=== PATIENT | female | born 1955 | race Caucasian/White ===

== ENCOUNTER 2016-10-23 10:55 | Observation (INO) | payer MEDICAID ==
[~2016-10-23] VITALS: Ht 172.7 cm; Wt 105.2 kg
[~2016-10-23 10:55] MED LIST: ESTR1TAB17 PO; LEVO125T8 PO
[2016-10-23] MEDS ORDERED: ASPIRIN 81 MG TABLET CHEW PO ONE (11:30)
[2016-10-23 12:16] LABS: BLOOD UREA NITROGEN 15 mg/dL (7-18)
[2016-10-23] MEDS ORDERED: ASPIRIN 81 MG TABLET CHEW ONE (12:16)
[2016-10-23 12:25] LABS: IS PT STATUS REG ER OR PRE ER? YES
[2016-10-23] MEDS ORDERED: MORPHINE SULFATE 4 MG/ML, 1ML IVPush PRN ×2 (12:30→17:00)
[2016-10-23] MEDS ORDERED: ONDANSETRON 2MG/ML, 2ML IVPush ONE (12:30)
[2016-10-23] MEDS ORDERED: NITROGLYCERIN SINGLE TAB 0.4 MG SL PRN (12:30)
[2016-10-23] MEDS ORDERED: SODIUM CHLORIDE FLUSH 10ML SYR IVF ONE (12:30)
[2016-10-23] MEDS ORDERED: SODIUM CHLORIDE FLUSH 10ML SYR IVF PRN (13:30)
[2016-10-23] MEDS ORDERED: HYDROcodone/APAP 5/325 TABLET PO PRN (17:00)
[2016-10-23] MEDS ORDERED: DOCUSATE 100 MG CAPSULE PO PRN (17:00)
[2016-10-23] MEDS ORDERED: ONDANSETRON 2MG/ML, 2ML IVPush PRN (17:00)
[2016-10-23] MEDS ORDERED: hydrALAzine 20 MG/ML, 1ML IVPush PRN (17:00)
[2016-10-23] MEDS ORDERED: ACETAMINOPHEN 325 MG TABLET ONE (17:40)
[2016-10-23] MEDS: ACETAMINOPHEN 325 MG TABLET PO PRN (17:42)
[2016-10-23 18:48] LABS: IS PT STATUS REG ER OR PRE ER? YES
[2016-10-23 20:00] VITALS: BP 114/71
[2016-10-24 01:24] LABS: IS PT STATUS REG ER OR PRE ER? NO
[2016-10-24 02:00] VITALS: BP_SYST 115; BP_SYST 125; BP_DIAS 74; BP_DIAS 76
[2016-10-24 05:48] LABS: BLOOD UREA NITROGEN 17 mg/dL (7-18)
[2016-10-24] MEDS: ASPIRIN 81 MG TABLET EC PO SCH (06:02)
[2016-10-24 07:20] VITALS: BP 113/73
[2016-10-24] MEDS ORDERED: REGADENOSON 0.4 MG/5 ML SYRINGE ONE (08:21)
[2016-10-24] MEDS: LEVOTHYROXINE 125 MCG TABLET PO SCH (09:02)
[2016-10-24 12:57] VITALS: BP 126/78
[2016-10-24] MEDS ORDERED: SIMV10TA3 PO (15:35)
[2016-10-24] MEDS ORDERED: ASPI-621 PO (15:35)
[2016-10-24] MEDS ORDERED: DIAZ5TAB PO (17:24)
[2016-10-24] MEDS: ACETAMINOPHEN 325 MG TABLET PO PRN (17:28)
[2016-10-24 20:00] VITALS: BP 106/66
[2016-10-24 21:36] VITALS: BP 118/73
[2016-10-25 02:00] VITALS: BP 105/67
[2016-10-25] MEDS: ASPIRIN 81 MG TABLET EC PO SCH (05:47)
[2016-10-25 06:50] VITALS: BP 106/67
[2016-10-25] MEDS: LEVOTHYROXINE 125 MCG TABLET PO SCH (08:13)
== END 2016-10-25 11:45 | disposition home or self-care (01) ==
LOC: ED 13:07 → INTOOBSV 13:08 → EDIP 13:08 → ED 13:13 → 4EST 19:23
PROVIDERS: ADMIT Internal Medicine; ATTEND Internal Medicine
DX: R07.89 Other chest pain (principal); E03.9 Hypothyroidism, unspecified; N26.1 Atrophy of kidney (terminal); I20.0 Unstable angina; G47.00 Insomnia, unspecified; F17.200 Nicotine dependence, unspecified, uncomplicated; Z90.710 Acquired absence of both cervix and uterus; Z83.3 Family history of diabetes mellitus
CPT/HCPCS: 36415; 71020; 78452; 80048; 80061; 82040; 83036; 83880; 84443; 84484; 85025; 93005; 93017; 93306; 99285; A9502; C9898; G0378; J2785

== ENCOUNTER 2017-01-24 15:19 | Emergency (ER) | payer MEDICAID ==
[~2017-01-24] VITALS: Ht 172.7 cm; Wt 91.9 kg
[~2017-01-24 15:19] MED LIST changes: +ASPI-621 PO; +DIAZ5TAB PO; +SIMV10TA3 PO
[2017-01-24 15:56] LABS: HEMATOCRIT 40.3 % (34.6-47.8); HEMOGLOBIN 13.5 g/dL (11.7-16.4); WHITE BLOOD COUNT 9.7 x10^3/uL (3.4-10)
[2017-01-24 16:05] LABS: BLOOD UREA NITROGEN 17 mg/dL (7-18)
[2017-01-24 16:33] VITALS: BP 145/85
== END 2017-01-24 16:36 | disposition home or self-care (01) ==
LOC: ED 16:17
DX: R00.2 Palpitations (principal); I10 Essential (primary) hypertension; R11.0 Nausea
CPT/HCPCS: 36415; 80048; 81003; 82040; 84436; 84443; 85025; 93005; 99285

== ENCOUNTER 2017-01-25 17:50 | Emergency (ER) | payer MEDICAID ==
[~2017-01-25] VITALS: Ht 175.3 cm; Wt 91.6 kg
[2017-01-25 17:52] VITALS: BP 125/82
== END 2017-01-25 18:24 | disposition home or self-care (01) ==
LOC: ED 18:00
DX: K08.89 Other specified disorders of teeth and supporting structures (principal); I10 Essential (primary) hypertension
CPT/HCPCS: 99283

== ENCOUNTER 2017-04-11 19:47 | Emergency (ER) | payer MEDICAID ==
[~2017-04-11] VITALS: Ht 172.7 cm; Wt 91.5 kg
[2017-04-11 19:50] VITALS: BP 128/83
[2017-04-11] MEDS ORDERED: KETOROLAC 30 MG/1 ML ONE (20:42)
[2017-04-11] MEDS ORDERED: KETOROLAC 30 MG/1 ML IM ONE (21:00)
== END 2017-04-11 21:38 | disposition home or self-care (01) ==
LOC: ED 20:07
DX: S20.212A Contusion of left front wall of thorax, initial encounter (principal); I10 Essential (primary) hypertension; Z90.49 Acquired absence of other specified parts of digestive tract; Z90.710 Acquired absence of both cervix and uterus; X58.XXXA Exposure to other specified factors, initial encounter; Y93.89 Activity, other specified; Y92.89 Other specified places as the place of occurrence of the external cause; Y99.8 Other external cause status
CPT/HCPCS: 71101; 96372; 99284; J1885

== ENCOUNTER 2017-07-05 18:12 | Emergency (ER) | payer MEDICAID ==
[~2017-07-05] VITALS: Ht 175.3 cm; Wt 92.9 kg
[2017-07-05 18:16] VITALS: BP 156/83
[2017-07-05] MEDS ORDERED: KETOROLAC 30 MG/1 ML ONE (19:11)
[2017-07-05] MEDS ORDERED: KETOROLAC 30 MG/1 ML IM ONE (19:30)
== END 2017-07-05 19:46 | disposition home or self-care (01) ==
LOC: ED 19:19
DX: B34.9 Viral infection, unspecified (principal); I10 Essential (primary) hypertension; E03.9 Hypothyroidism, unspecified; Z87.891 Personal history of nicotine dependence; Z90.49 Acquired absence of other specified parts of digestive tract
CPT/HCPCS: 71046; 96372; 99284; J1885

== ENCOUNTER 2018-08-27 12:33 | Emergency (ER) | payer MEDICAID ==
[~2018-08-27] VITALS: Ht 172.7 cm; Wt 91.9 kg
[~2018-08-27 12:33] MED LIST changes: -ASPI-621 PO; +ASPI81TA45 PO
[2018-08-27 12:51] VITALS: BP 112/72
[2018-08-27] MEDS ORDERED: DIPH,PERTUSS(ACELL),TET VAC/PF 0.5 ML IM-VACC ONE ×2 (13:00→13:02)
[2018-08-27] MEDS ORDERED: LIDOCAINE-MPF 1%, 5ML ONE (13:03)
[2018-08-27] MEDS ORDERED: LIDOCAINE-MPF 1%, 5ML INFIL ONE (13:30)
[2018-08-27] MEDS ORDERED: BACITRACIN ZINC OINT 500U/GM, 0.9 GM ONE (13:31)
== END 2018-08-27 13:48 | disposition home or self-care (01) ==
LOC: ED 13:42
DX: S61.212A Laceration without foreign body of right middle finger without damage to nail, initial encounter (principal); X58.XXXA Exposure to other specified factors, initial encounter; Y93.89 Activity, other specified; Y92.009 Unspecified place in unspecified non-institutional (private) residence as the place of occurrence of the external cause; Y99.8 Other external cause status
CPT/HCPCS: 12001; 90471; 90715

== ENCOUNTER 2019-04-02 19:16 | Observation (INO) | payer MEDICAID ==
[~2019-04-02] VITALS: Ht 172.7 cm; Wt 94.2 kg
[2019-04-02] MEDS ORDERED: ASPIRIN 81 MG TABLET CHEW ONE (19:52)
[2019-04-02] MEDS ORDERED: MAALOX/HYOSCYAMINE/LIDOCAINE 45 ML BTL ONE (19:53)
[2019-04-02] MEDS ORDERED: ASPIRIN 81 MG TABLET CHEW PO ONE (20:00)
[2019-04-02] MEDS ORDERED: MAALOX/HYOSCYAMINE/LIDOCAINE 45 ML BTL PO ONE (20:00)
[2019-04-02 20:02] LABS: BASOPHILS # (AUTO) 0.09 x10^3/uL (0-0.1); BASOPHILS % (AUTO) 1 % (0-1); EOSINOPHILS # (AUTO) 0.12 x10^3/uL (0-0.4); EOSINOPHILS % (AUTO) 1 % (1-7); LYMPHOCYTES # (AUTO) 2.59 x10^3/uL (1-3.4); LYMPHOCYTES % (AUTO) 26 % (22-44); MD NO; MEAN CORPUSCULAR HEMOGLOBIN 31.1 pg (27.0-34.8); MEAN CORPUSCULAR HGB CONC 32.9 g/dL (32.4-35.8); MEAN CORPUSCULAR VOLUME 94.5 fL (80-100); MEAN PLATELET VOLUME 9.2 fL (7.4-10.4); MONOCYTES # (AUTO) 0.95 x10^3/uL (0.2-0.8); MONOCYTES % (AUTO) 10 % (2-9); NEUTROPHILS # (AUTO) 6.13 x10^3/uL (1.8-6.8); NEUTROPHILS % (AUTO) 62 % (42-75); PLATELET COUNT 247 x10^3/uL (130-400); RED BLOOD COUNT 4.59 x10^6/uL (3.82-5.3); RED CELL DISTRIBUTION WIDTH 13.4 % (9.6-15.2)
[2019-04-02 20:09] LABS: ALANINE AMINOTRANSFERASE 29 U/L (12-78); ALBUMIN 3.6 g/dL (3.4-5.0); ANION GAP 7 mmol/L (5-15); CALCIUM 8.7 mg/dL (8.5-10.1); CHLORIDE 108 mmol/L (98-107)
[2019-04-02 20:14] LABS: ALKALINE PHOSPHATASE 79 U/L (45-117); BILIRUBIN,TOTAL 0.3 mg/dL (0.2-1.0); CREATININE 1.28 mg/dL (0.55-1.02); TOTAL PROTEIN 7.7 g/dL (6.4-8.2); TROPONIN I < 0.015 ng/mL (0.000-0.045)
[2019-04-02 20:36] LABS: FREE T4 (FREE THYROXINE) 0.98 ng/dL (0.76-1.46)
[2019-04-02] MEDS ORDERED: LEVO150T5 PO (22:03)
[2019-04-02] MEDS ORDERED: CHOL500045 PO (22:04)
[2019-04-02 22:51] VITALS: BP 105/67
[2019-04-02] MEDS ORDERED: SODIUM CHLORIDE 0.9% 1,000 ML IV SCH (23:00)
[2019-04-02] MEDS ORDERED: ACETAMINOPHEN 325 MG TABLET PO PRN (23:00)
[2019-04-02] MEDS ORDERED: GABAPENTIN 300 MG CAPSULE PO PRN (23:00)
[2019-04-02] MEDS: HEPARIN 5,000 UNITS/ML, 1ML SQ SCH (23:53)
[2019-04-03 02:28] VITALS: BP 104/62
[2019-04-03 02:54] LABS: ANION GAP 3 mmol/L (5-15); CALCIUM 8.4 mg/dL (8.5-10.1); CHLORIDE 113 mmol/L (98-107); CHOLESTEROL, TOTAL 211 mg/dL (140-239); CREATININE 1.09 mg/dL (0.55-1.02); TRIGLYCERIDES 219 mg/dL (50-200); VLDL CHOLESTEROL 44 mg/dL (0-25)
[2019-04-03 02:57] LABS: CHOL/HDL RATIO 3.7; HDL CHOL % 27 % (28-40); HDL CHOLESTEROL (DIRECT) 57 mg/dL (40-60); LDL CHOLESTEROL,CALCULATED 110 mg/dL (54-169); LDL/HDL RATIO 1.9 (0.5-3.0)
[2019-04-03 03:07] LABS: TROPONIN I < 0.015 ng/mL (0.000-0.045)
[2019-04-03] MEDS ORDERED: ASPIRIN 325 MG TABLET EC PO SCH (06:00)
[2019-04-03 08:13] VITALS: BP 111/71
[2019-04-03] MEDS: HEPARIN 5,000 UNITS/ML, 1ML SQ SCH (08:22)
[2019-04-03 08:34] LABS: TROPONIN I < 0.015 ng/mL (0.000-0.045)
== END 2019-04-03 11:54 | disposition home or self-care (01) ==
LOC: ED 21:24 → EDIP 21:38 → INTOOBSV 21:38 → 5SO 22:43
PROVIDERS: ADMIT Family Medicine; ATTEND Internal Medicine
DX: R07.9 Chest pain, unspecified (principal); K21.9 Gastro-esophageal reflux disease without esophagitis; I12.9 Hypertensive chronic kidney disease with stage 1 through stage 4 chronic kidney disease, or unspecified chronic kidney disease; N18.9 Chronic kidney disease, unspecified; E66.9 Obesity, unspecified; E03.9 Hypothyroidism, unspecified; Z87.891 Personal history of nicotine dependence
CPT/HCPCS: 36415; 71045; 80048; 80053; 80061; 84439; 84443; 84484; 85025; 93005; 93017; 96372; 99284; G0378; J1644; J7030